=== PATIENT | female | born 2005 | race Two or more races ===

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

== ENCOUNTER → 2025-01-16 12:30 | Outpatient (CLI) | payer OTHER | END | disposition home or self-care (01) | LOC: PRENATAL 12:30 | PROVIDERS: ATTEND Obstetrics & Gynecology | DX: O26.849 Uterine size-date discrepancy, unspecified trimester (principal); O36.8199 Decreased fetal movements, unspecified trimester, other fetus; Z3A.33 33 weeks gestation of pregnancy ==

== ENCOUNTER 2025-02-17 05:50 | Outpatient (CLI) | payer OTHER ==
[2025-02-17 05:11] VITALS: BP 120/74
[2025-02-17] MEDS ORDERED: PRENATAL CAPLE1 EAC1 PO (05:58)
[2025-02-17 07:26] VITALS: BP 122/82
[2025-02-17 12:05] VITALS: BP 122/82
== END 2025-02-17 12:05 | disposition home or self-care (01) ==
LOC: OBS/DEL 05:50 → LDR 02-18 02:03 → OBS/DEL 02-18 02:03 → LDR 02-18 02:09
PROVIDERS: ATTEND Obstetrics & Gynecology
DX: O26.893 Other specified pregnancy related conditions, third trimester (principal); R10.2 Pelvic and perineal pain; Z3A.38 38 weeks gestation of pregnancy

== ENCOUNTER 2025-02-18 02:14 | Inpatient (IN) | payer OTHER ==
[2025-02-18] VITALS (10 sets, daily range): BP systolic 124–141; BP diastolic 77–91; O2SAT 3
[~2025-02-18] VITALS: Ht 162.6 cm; Wt 61.2 kg
[~2025-02-18 02:14] MED LIST changes: +PRENATAL CAPLE1 EAC1 PO
[2025-02-18] MEDS ORDERED: RINGERS SOLUTION,LACTATED 1,000 ML IV SCH (02:30)
[2025-02-18 02:53] LABS: BASO % 0.1 % (0.1-1.2); EOS # 0.04 (0.04-0.54); EOS % 0.3 % (0.7-7.0); LYMPH # 1.25 (1.18-3.74); LYMPH % 9.1 % (19.3-53.1); MEAN PLATELET VOLUME 12.00 fl (9.4-12.4); MONO # 1.07 (0.24-0.82); MONO % 7.8 % (4.7-12.5); NEUT # 11.23 (1.56-6.13); NEUT % 82.2 % (34.0-71.1); RED CELL DISTRIBUTION WIDTH 12.8 % (11.6-14.4)
[2025-02-18 03:08] LABS: INR < 0.93
[2025-02-18 03:12] LABS: ALT/SGPT 18.0 U/L (12-78); AST/SGOT 15.0 U/L (15-37); BILIRUBIN TOTAL 0.24 mg/dL (0.3-1.2); BUN CREA RATIO 12.0 (7.0-25.0); CREATININE SERUM 0.5 mg/dL (0.55-1.02); GFR 158.94; GLOBULINA 3.9 G/DL (2.4-3.5); GLUCOSE FASTING 102.0 mg/dL (65-100); OSMOLALITY SERUM 279.0 MOSM/KG (275-295)
[2025-02-18] MEDS ORDERED: OXYTOCIN 500 ML IV SCH (09:00)
[2025-02-18] MEDS ORDERED: OXYTOCIN 1,000 ML IV SCH (10:00)
[2025-02-18] MEDS ORDERED: CHLORHEXIDINE GLUCONATE 120 ML BOTTLE TP SCH (10:00)
[2025-02-18] MEDS ORDERED: ERYTHROMYCIN BASE OPHT 1GM EACH TUBE OP ONE (11:00)
[2025-02-19 00:28] VITALS: BP 117/77
[2025-02-19 08:00] VITALS: BP 108/70
[2025-02-19 17:11] VITALS: BP 114/79
[2025-02-19 21:23] VITALS: BP 137/88
[2025-02-20 00:06] VITALS: BP 126/87
[2025-02-20] MEDS ORDERED: ACETAMINOPHEN 500 MG GEL..CAP PO PRN (01:45)
[2025-02-20 08:28] VITALS: BP 122/80
== END 2025-02-20 14:47 | disposition home or self-care (01) | DRG 807 ==
LOC: OB/GYN 02:14 → LDR 02:14 → OB/GYN 10:55
PROVIDERS: ADMIT Obstetrics & Gynecology; ATTEND Obstetrics & Gynecology
PROC: 10E0XZZ Delivery of Products of Conception, External Approach (ICD-10-PCS; principal; 2025-02-18)
PROC: 4A1HXCZ Monitoring of Products of Conception, Cardiac Rate, External Approach (ICD-10-PCS; 2025-02-18)
DX: O80 Encounter for full-term uncomplicated delivery (principal); Z37.0 Single live birth; Z3A.39 39 weeks gestation of pregnancy

== ENCOUNTER 2025-03-03 11:59 | Emergency (ER) | payer OTHER ==
[~2025-03-03] VITALS: Ht 162.6 cm; Wt 55.3 kg
[2025-03-03] MEDS ORDERED: ACETAMINOPHEN 500 MG GEL..CAP PO ONE ×2 (13:36→13:45)
[2025-03-03 13:44] LABS: BASO % 0.4 % (0.1-1.2); EOS # 0.48 (0.04-0.54); EOS % 4.3 % (0.7-7.0); LYMPH # 0.83 (1.18-3.74); LYMPH % 7.4 % (19.3-53.1); MEAN PLATELET VOLUME 9.80 fl (9.4-12.4); MONO # 0.46 (0.24-0.82); MONO % 4.1 % (4.7-12.5); NEUT # 9.33 (1.56-6.13); NEUT % 83.6 % (34.0-71.1); RED CELL DISTRIBUTION WIDTH 12.7 % (11.6-14.4)
== END 2025-03-03 15:18 | disposition home or self-care (01) ==
LOC: ER 11:59
PROVIDERS: General Practice
DX: O92.29 Other disorders of breast associated with pregnancy and the puerperium (principal); Z91.018 Allergy to other foods